=== PATIENT | female | born 1965 | race Caucasian/White ===

== ENCOUNTER 2016-09-24 08:40 | Day surgery (SDC) | payer OTHER ==
[~2016-09-24] VITALS: Ht 160 cm; Wt 80.0 kg
[~2016-09-24 08:40] MED LIST: 0.9% Sodium Chloride 1,000 ML IV SCH; DORZ10DR18 OP; ERGO500029 PO; EYE; LACT1CAP65 PO; OMEP40CA36 PO; PRED5DRO6 BOTH_EYES; Sodium Chloride LOK Flush 10 mL Syringe IV PRN; fentaNYL-PF 50 mCg/mL 2 mL Inj IVPUSH PRN
[2016-09-24 09:17] VITALS: BP 121/98; PULSE 88; O2SAT 97
[2016-09-24] MEDS ORDERED: FLUT9.9S NS (09:21)
[2016-09-24 10:30] VITALS: BP 96/62; PULSE 70; RESP 16; O2SAT 92
[2016-09-24 10:44] VITALS: BP 83/61; PULSE 80; RESP 16; O2SAT 99
[2016-09-24 10:49] VITALS: BP 98/53; PULSE 75; RESP 16; O2SAT 99
--- NOTE | 2016-09-24 16:35 | ENDO ---
[address] [address] ENDOSCOPY PROCEDURE PATIENT: TIA GOLDSTEIN : 1965 MR#: [id number] ADMIT: 09/24/2016 JOB ID: [id number] TITLE OF OPERATION: Esophagogastroduodenoscopy, biopsy, and colonoscopy. PREOPERATIVE DIAGNOSIS(ES): Gastroesophageal reflux disease and colorectal cancer screening. POSTOPERATIVE DIAGNOSIS(ES): 1. Multiple gastric body polyps, status post biopsy. 2. Normal colonoscopy. ANESTHESIA: Fentanyl 150 mcg, Versed 7 mg IV administered. COMPLICATIONS: None. BLOOD LOSS: Minimal. DESCRIPTION OF PROCEDURE: After risks and benefits were explained to the patient, informed consent was obtained. After anesthesia was administered, an upper endoscope was inserted in the mouth intubating to the esophagus, stomach, second portion of duodenum. Mucosa carefully examined. After procedure was done, the scope withdrawn, procedure terminated. Colonoscope was inserted from the rectum to the cecum. Mucosa carefully examined. Prep of the patient was excellent. After the procedure was done, the scope was withdrawn and the procedure terminated. FINDINGS: Upon inspection of the esophagus, the esophagus was normal without masses, ulcers, or lesions. Z-line located 40 cm from incisors. Upon entering stomach, the stomach also appeared normal except there were multiple gastric body polyps that were seen, which was biopsied. Retroflexion showed normal duodenal bulb. First and second portion were normal. Biopsies taken of antrum and body stomach and distal esophagus. Upon inspection of the anus, no masses, hemorrhoids, ulcers, were seen throughout the entire examination. There were no polyps, masses, or lesions. Retroflexion was normal. IMPRESSION: 1. Normal colonoscopy. 2. Multiple gastric body polyps, status post biopsy. RECOMMENDATIONS: Await pathology results. Repeat colonoscopy in 10 years for colorectal cancer screening.
--- NOTE | 2016-09-29 09:46 | PATH ---
SURGICAL PATHOLOGY Attending Physician:Woodrow Ayala MD CASE STATUS: Signed Out PATIENT NAME: TIA GOLDSTEIN PID: [id number] : 1965 DATE COLLECTED:09/24/2016 17:50 SPECIMEN: 1: Stomach, Antrum, Biopsy 2: Gastric, Biopsy 3: Stomach, Polyp, Biopsy 4: Esophagus, Biopsy CLINICAL HISTORY: 1). GASTRIC ANTRUM 2). GASTRIC BODY 3). GASTRIC POLYP 4).DISTAL ESOPHAGEAL FINAL DIAGNOSIS: 1. Gastric Antrum, Biopsy: Normal gastric antrum. No significant inflammation identified. Negative for Helicobacter organisms. No evidence of malignancy or dysplasia. 2. Gastric Body, Biopsy: Normal gastric corpus. No significant inflammation identified. Negative for Helicobacter organisms. Negative for intestinal metaplasia. No evidence of malignancy or dysplasia. 3. Gastric Polyp: Fundic gland polyp. No evidence of malignancy or dysplasia. Negative for intestinal metaplasia. 4. Esophagus, Biopsy: Esophageal squamous epithelium and gastric glandular mucosa with mild chronic active inflammation. Negative for intestinal metaplasia. No evidence of malignancy or dysplasia. ICD10 D13.1; K20.9 GROSS DESCRIPTION: The specimen is received in four formalin filled containers labeled with the patient's name. 1). The specimen is sublabeled "antrum" and consists of 2 portions of tissue which aggregate to 0.5 x 0.3 x 0.2 CM. The specimen is entirely submitted in cassette 1A. 2). The specimen is sublabeled "gastric body" and consists of 2 portions of tissue which aggregate to 0.4 x 0.3 x 0.2 CM. The specimen is entirely submitted in cassette 2A. 3). The specimen is sublabeled "gastric polyps" and consists of a 0.3 x 0.3 x 0.2 CM portion of tissue which is entirely submitted in cassette 3A. 4). The specimen is sublabeled "distal esophagus" and consists of one piece of a 0.3 x 0.2 x 0.2 CM portion of tissue which is entirely submitted in cassette 4A. 09/28/2016 [facility] ICD-9 CODES: CPT CODES: 1: 04785 2: 54167 3: 02802 4: 49767 Electronically Signed Out Javi Laureano MD [facility] Pathology [facility] [address] [place] [address], [place] [address] Technical component performed at [facility], [address], [place], [address]
== END 2016-09-24 23:59 | disposition home or self-care (01) ==
LOC: END 08:40
PROVIDERS: ATTEND Internal Medicine Gastroenterology
DX: Z12.11 Encounter for screening for malignant neoplasm of colon (principal); K20.9 Esophagitis, unspecified; K31.7 Polyp of stomach and duodenum; K21.9 Gastro-esophageal reflux disease without esophagitis; E78.00 Pure hypercholesterolemia, unspecified; R74.8 Abnormal levels of other serum enzymes
CPT/HCPCS: 43239; 99153; G0121; G0500; J7030